=== PATIENT | female | born 1955 | race Caucasian/White ===

== ENCOUNTER 2022-04-21 17:55 | Emergency (ER) | payer SELFPAY ==
[2022-04-21] MEDS ORDERED: ONDANSETRON 4 MG/2 ML INJ IV ONE (20:30)
[2022-04-21] MEDS ORDERED: HYDROmorphone 1 MG/1 ML INJ IV ONE (20:30)
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
[2022-04-21 20:43] LABS: Hematocrit 29.9 % (30.3-42.9); Hemoglobin 9.6 gm/dl (10.1-14.3); Mean Corpuscular HGB Conc 32 % (30-34); Mean Corpuscular Volume 75 fl (79-97); Platelet Count 288 K/mm3 (140-440); Red Blood Count 3.99 M/mm3 (3.65-5.03); Red Cell Distribution Width 19.1 % (13.2-15.2)
[2022-04-21 21:04] LABS: Alanine Aminotransferase 10 units/L (7-56); Albumin 3.7 g/dL (3.9-5); BUN/Creatinine Ratio 12; Blood Urea Nitrogen 17 mg/dL (7-17); Calcium 9.2 mg/dL (8.4-10.2); Hemolysis Index 2
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
[2022-04-21 23:02] VITALS: BP 137/79
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
[2022-04-22] MEDS ORDERED: HYDROcodone/ACETAMINOPHEN 5-325 MG TAB PO ONE (00:11)
--- NOTE | 2022-04-23 21:28 | Electrocardiograph Report ---
[facility] Test Date: 2022-04-21 Test Time: 20:04:00 Pat Name: GILDA GOTTLIEB Department: Room: Gender: F Manager Mission: CHRISTIN Tariq : 1955 Requested By: RITA FREITAS III Order Number: [id number] Reading MD: Augie Scott Measurements Intervals [place] Rate: 87 P: 69 ND: 157 QRS: 1 QRSD: 89 T: 14 QT: 390 QTc: 469 Interpretive Statements Sinus rhythm No previous ECG available for comparison Electronically Signed On 04-23-2022 21:27:38 EDT by Augie Scott
== END 2022-04-22 00:28 | disposition home or self-care (01) ==
LOC: ED 17:55
DX: M84.48XA Pathological fracture, other site, initial encounter for fracture (principal); R07.89 Other chest pain; R07.81 Pleurodynia; M54.59 Other low back pain; D64.9 Anemia, unspecified; I10 Essential (primary) hypertension; M10.9 Gout, unspecified; E78.00 Pure hypercholesterolemia, unspecified; V49.9XXA Car occupant (driver) (passenger) injured in unspecified traffic accident, initial encounter; Y93.89 Activity, other specified; Y92.89 Other specified places as the place of occurrence of the external cause; Y99.8 Other external cause status
CPT/HCPCS: 36415; 71101; 72100; 72131; 80053; 85027; 93005; 96374; 96375; 99285; J1170; J2405